=== PATIENT | female | born 1980 | race Caucasian/White ===

== ENCOUNTER 2020-12-15 08:53 | Emergency (ER) | payer OTHER, SELFPAY ==
[2020-12-15 09:13] VITALS: BP 159/90; PULSE 80; RESP 18; TEMP 36.8; O2SAT 100; BMI 28.3
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
== END 2020-12-15 10:00 | disposition home or self-care (01) ==
PROVIDERS: Emergency Provider Emergency Medicine
DX: S29.012A Strain of muscle and tendon of back wall of thorax, initial encounter (principal); V43.62XA Car passenger injured in collision with other type car in traffic accident, initial encounter; Y93.89 Activity, other specified; Y92.415 Exit ramp or entrance ramp of street or highway as the place of occurrence of the external cause; Y99.9 Unspecified external cause status
CPT/HCPCS: 99283

== ENCOUNTER 2020-12-18 16:03 | Emergency (ER) | payer OTHER, SELFPAY ==
--- NOTE | 2020-12-18 | ECG_ITS ---
Test Reason : CHEST PAIN Blood Pressure : / mmHG Vent. Rate : 077 BPM Atrial Rate : 077 BPM P-R Int : 148 ms QRS Dur : 082 ms QT Int : 388 ms P-R-T Axes : 054 025 022 degrees QTc Int : 439 ms Normal sinus rhythm Possible Left atrial enlargement Borderline ECG No previous ECGs available Referred By: Generic ED Physician Electronically Signed By:GINO NOBLE
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
[2020-12-18 16:34] VITALS: BP 144/87; PULSE 78; RESP 18; TEMP 36.5; O2SAT 100; BMI 28.3
[2020-12-18 18:18] VITALS: BP 150/97; PULSE 70; RESP 16; TEMP 36.3; O2SAT 99
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
== END 2020-12-18 20:04 | disposition home or self-care (01) ==
PROVIDERS: Emergency Provider Emergency Medicine Emergency Medical Services
DX: S39.012A Strain of muscle, fascia and tendon of lower back, initial encounter (principal); S29.011A Strain of muscle and tendon of front wall of thorax, initial encounter; M54.6 Pain in thoracic spine; V43.62XA Car passenger injured in collision with other type car in traffic accident, initial encounter; Y93.9 Activity, unspecified; Y92.410 Unspecified street and highway as the place of occurrence of the external cause; Y99.9 Unspecified external cause status; Z79.899 Other long term (current) drug therapy
CPT/HCPCS: 71111; 72070; 93005; 99283; 99284

== ENCOUNTER 2020-12-24 11:26 | Emergency (ER) | payer OTHER, SELFPAY ==
[2020-12-24 12:16] VITALS: BP 128/88; PULSE 78; RESP 20; TEMP 36.9; O2SAT 99; BMI 28.3
[2020-12-24 13:01] VITALS: BP 141/93; PULSE 81; RESP 18; O2SAT 98
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
== END 2020-12-24 14:16 | disposition home or self-care (01) ==
PROVIDERS: Emergency Provider Emergency Medicine Emergency Medical Services
DX: M54.6 Pain in thoracic spine (principal); Z79.899 Other long term (current) drug therapy
CPT/HCPCS: 99283; 99284

== ENCOUNTER 2022-01-30 07:48 | Emergency (ER) | payer OTHER, SELFPAY ==
--- NOTE | ~2022-01-30 | CT_ITS ---
EXAMINATION: CT ABDOMEN AND PELVIS WITH CONTRAST CLINICAL INFORMATION: Abdominal pain and constipation COMPARISON: None TECHNIQUE: Multidetector volumetric images were obtained from the superior aspect of the liver through the pubic symphysis following administration 85 mL of Omnipaque 350 intravenous contrast. Sagittal and coronal reformatted images were obtained on the technologist's workstation. Oral contrast: No This CT examination was performed using dose optimization techniques as appropriate, variously including the following: *Automated exposure control *Adjustment of mA and/or kV according to patient size (this includes techniques or standardized protocols for targeted exams where dose is matched to indication/reason for exam; i.e. extremities or head) *Use of iterative reconstruction technique DLP: 590 mGy-cm FINDINGS: LUNG BASES: The visualized lung bases are unremarkable. LIVER, GALLBLADDER, AND BILIARY TREE: The liver is normal in size, shape, and attenuation. No focal hepatic lesion or biliary ductal dilatation is present. The gallbladder has been surgically removed. PANCREAS: Unremarkable. SPLEEN: Unremarkable. ADRENAL GLANDS: Unremarkable. KIDNEYS AND URETERS: The kidneys are normal in size, shape, and attenuation. No hydronephrosis, hydroureter, or calculi seen. No perinephric stranding. BLADDER: Mild symmetric bladder wall thickening GASTROINTESTINAL TRACT: The small and large bowel are unremarkable. The appendix is unremarkable. ABDOMINAL WALL: No significant hernia is appreciated. LYMPH NODES: No retroperitoneal lymphadenopathy. VASCULAR: Unremarkable. PELVIC VISCERA: Anteverted normal appearing uterus. There is a 1.9 cm cyst in the right adnexa (3:66) which appears to be separate from the right ovary (3:63). OSSEOUS STRUCTURES: Unremarkable. CT/CT abdomen pelvis w IV con IMPRESSION: 1. A definitive cause for the patient's abdominal pain and constipation has not been found. 2. Incidentally noted right adnexal cyst. 3. Bladder wall thickening may be due to underfilling but cystitis could have such an appearance. Please correlate with UA. Fleischner guidelines were followed.
[2022-01-30 07:53] VITALS: BP 133/81; PULSE 115; RESP 16; TEMP 36.6; O2SAT 98; BMI 30.2
--- NOTE | 2022-01-30 08:33 | ED_ITS ---
HPI - Abdominal Pain General Chief Complaint: Abdominal Pain Stated Complaint: pelvic pain Time Seen by Provider: 01/30/22 08:01 Source: patient Mode of arrival: ambulatory Limitations: no limitations History of Present Illness HPI narrative: Patient is an otherwise healthy 41-year-old female who presents to the ED today with complaints of lower abdominal pain and bloating. She states her symptoms started Thursday after she completed her menstrual cycle. She describes the pain as ?pressure? followed by a sharp sensation that originates below her umbilicus and radiates to the RLQ and LLQ. She reports walking and lying down flat make the pain worse. She was able to have a small non-bloody BM while here however her last normal BM was Thursday. She took Gas-X with with relief of her bloating sensation. She denies fevers, chills, cough, chest pain, SOB, diarrhea, bloating/black stools, leg pain/swelling, rashes, known sick contacts, recent antibiotic use, recent travel, and personal/family hx of GI diagnoses. She does report an abdominal surgical history of a lap cholecystectomy and tubal ligation several years ago She also endorses having an increase in white vaginal discharge since her menses ended. She denies any dysuria, hematuria, vaginal itching, new vaginal bleeding, back pain, and flank pain. Related Data Hx Last Menstrual Period: Ended Thursday Patient : No Previous Rx's Medication Instructions Recorded cyclobenzaprine 10 mg tablet 10 mg PO TID PRN muscle spasm #14 12/15/20 tabs ibuprofen 600 mg tablet 600 mg PO Q8H PRN pain #20 tabs 12/15/20 lidocaine 5 % topical patch 1 patch topical DAILY #15 ea 12/15/20 (Lidoderm) oxycodone 5 mg tablet 5 mg PO Q6H PRN pain #14 tabs 12/18/20 diazepam 5 mg tablet (Valium) 5 mg PO TID PRN muscle spasm #14 12/24/20 tabs lidocaine 5 % topical patch 1 patch topical DAILY pain #15 ea 12/24/20 (Lidoderm) naproxen 500 mg tablet 500 mg PO BID PRN pain #10 tabs 12/24/20 oxycodone 5 mg tablet 5 mg PO Q6H PRN pain #14 tabs 12/24/20 doxycycline monohydrate 100 mg 100 mg PO BID #28 caps 01/30/22 capsule metronidazole 500 mg tablet 500 mg PO BID 7 days #14 tabs 01/30/22 nitrofurantoin 100 mg PO Q12H 5 days #10 caps 01/30/22 monohydrate/macrocrystals 100 mg capsule (Macrobid) phenazopyridine 200 mg tablet 200 mg PO TID PRN pain 6 doses #10 01/30/22 (Pyridium) tabs Allergies Allergy/AdvReac Type Severity Reaction Status Date / Time aspirin [ASA] Allergy Hives Verified 12/18/20 17:45 Review of Systems Review of Systems Yes all other systems are reviewed and are negative Constitutional: Reports no additional constitutional complaints, Denies body ache(s), Denies chills, Denies fever(s), Denies headache(s) and Denies weakness Eyes: Reports no additional eye complaints and Denies change in vision Reports system reviewed and no additional complaints, except as documented, Denies dizziness, Denies headache(s), Denies nasal congestion, Denies nasal discharge and Denies neck pain Cardiovascular: Reports no additional cardiovascular complaints, Denies chest pain, Denies leg edema and Denies dyspnea Respiratory: Reports no additional respiratory complaints, Denies cough and Denies dyspnea Gastrointestinal: Reports no additional gastrointestinal complaints, Reports abdominal pain, Reports bloating, Reports constipation, Denies diarrhea, Denies nausea and Reports vomiting Genitourinary: Reports no additional female genitourinary complaints, Denies hematuria, Denies genital pruritis, Denies genital lesions, Denies flank pain, Denies urinary incontinence, Reports vaginal discharge, Denies vaginal odor and Denies vaginal pruritus Musculoskeletal: Reports no additional musculoskeletal complaints, Denies back pain, Denies arthralgias, Denies joint swelling, Denies neck pain, Denies numbness and Denies tingling Skin/Breast: Reports system reviewed and no additional complaints, except as docu and Denies rash Reports system reviewed and no additional complaints, except as documented, Denies dizziness, Denies headache(s), Denies numbness, Denies tingling and Denies weakness PMFSH Past Medical History Attestation statement: The following information was validated with the patient. Source: old records reviewed, obtained from family and nursing notes reviewed Medical History Asthma Surgical History H/O tubal ligation History of carpal tunnel surgery Hx Last Menstrual Period: Ended Thursday Social History Social History Patient Tobacco Use Status: Never used Tobacco Advance Directives: No Advance Directives Information Provided: Yes Patient : No Physical Exam ED Vital Signs: Vital Signs - 24 hr 01/30/22 07:53 01/30/22 08:50 Temperature 97.9 F 98.5 F Pulse Rate 115 H 93 Respiratory Rate 16 20 Blood Pressure 133/81 134/92 H Pulse Oximetry 98 97 Oxygen Delivery Method Room Air Room Air BMI result Body Mass Index 30.2 Const General: cooperative, healthy appearing, comfortable and no acute distress Orientation/consciousness: patient oriented x3 Limitations: no limitations HENMT Head: Yes normal to inspection Ears: hearing grossly normal bilaterally General nose exam: Normal external nose present Face and sinus: Yes normal facial exam Eyes General: appearance normal, both eyes and all related structures Eyelids: Yes eyelids normal Conjunctivae: conjunctivae normal Sclerae: sclerae normal Pupils: Equal, round and reactive pupils present EOM: EOMs intact bilaterally Neck Neck: Yes normal visual inspection Chest Chest palpation & inspection: normal inspection of the chest Resp Effort & Inspection: normal respiratory effort Auscultation: clear to auscultation bilaterally Cardio Rate: regular rate Rhythm: regular rhythm Heart sounds: S1 normal heart sound present and S2 normal heart sound present GI Inspection: Yes normal to inspection Palpation (GI): Soft to palpation and Tenderness to palpation present (GI) in the LLQ, in the RLQ and suprapubicly; not at McBurney's point, Caldwell's sign negative, obturator sign negative and Rovsing's sign negative Auscultation: normal bowel sounds (RUQ, LUQ) and Hypoactive bowel sounds present (LLQ, RLQ) Other: Done with Yuridia GARCIA student (cassandra architect) General: Yes no CVA tenderness External Female Exam: normal external appearance Speculum Exam - Vagina: normal appearance of the vagina, normal palpation and abnormal vaginal discharge (Copious amount of thick white discharge ) Speculum Exam - Cervix: normal appearance of the cervix Bimanual exam- vagina & uterus: normal bimanual exam and normal palpation Bimanual Exam- Adnexa, other: normal adnexae Back/Spine/Pelvis Back: no CVA tenderness Thoracic/Lumbar Spine: thoracic and lumbar spine normal to inspection Skin General skin exam: no rashes or lesions noted Neuro General: patient oriented x3 Cranial nerves: Yes CN's II-XII intact bilaterally and Yes Equal, round and reactive pupils present Extrem General: Yes normal to inspection Course Course Course Narrative: Patient was seen in conjunction with Yuridia GARCIA student Reevaluation(s) Reevaluation #1: 9:00 -Pelvic exam performed with cassandra architect present. Speculum exam revealed copious amounts of thick, white discharge. No abnormalities noted along vaginal wall and cervix. Bimanual exam negative for cervical motion tenderness, adnexal tenderness, palpable masses to suggest PID or TOA. Swab for GC/CT, BV, martina, and trich were collected. Pt complaining of lower abdominal pain after exam, ordered Tylenol 975mg once for pain. -CBC reveals leukocytosis of 14.4 and abs neutrophils of 83.2. -BMP WNL. -Given leukocytosis and otherwise negative pelvic exam, will order CT abd/pelvis with IV contrast to assess for other causes of abdominal pain. Reevaluation #2: 10:15 -HCG negative. UA with trace protein, trace blood, 3+ leukocyte esterace, and 21-50 WBCs. Results consistent with cystitis, possible contamination from increased vaginal discharge. -CT abd/pelvis IMPRESSION: 1.? A definitive cause for the patient's abdominal pain and constipation has not been found. 2.? Incidentally noted right adnexal cyst. 3.? Bladder wall thickening may be due to underfilling but cystitis could have such an appearance. Please correlate with UA.. Discussed results with pt. Concern for acute GI etiology less likely. Symptoms likely attributed to combination of acute cystitis and bacterial vaginosis, will treat for both with Macrobid and Flagyl. Discussed avoidance of ETOH while taking and a few days after stopping Flagyl. Vaginal swabs pendings, will call patient if positive results return and discuss further management if indicated. Discussed worrisome signs and symptoms to watch out for and to return to ED if these occur. Follow up with PCP in 2-3 days for re-evaluation. Consultations Consultation #1: 1400-patient declined treatment for gonorrhea and chlamydia while she was in the emergency room. She tells me she has low concern for STDs. She is aware she will need to return if her gonorrhea test is positive. After the patient left her gonorrhea screen came back positive. She was also positive for bacterial vaginosis and she was informed of this. Patient is aware she will need to return for treatment with ceftriaxone. MDM - Abdominal Pain MDM Narrative Medical decision making narrative: Patient is an otherwise healthy 41-year-old female who presents to the ED today with complaints of lower abdominal pain and bloating. Pt tachy at 115, afebrile, otherwise VSS. She is tender to palpation with hypoactive bowel sounds in the b/l lower quadrants. Mild tenderness over the suprapubic area. Will check CBC, BMP, lipids, UA to differentiate GI vs etiology. Low concern at this time for pancreatitis, appendicitis, SBO, diverticulitis, ovarian torsion, ectopic . Will consider CT abd/pelvis and/or U/S pending lab results. Also reports increased vaginal discharge. Will perform pelvic exam and swab for GC/CT, BV, martina, trich. Medical Records Attestation: I reviewed the patient's medical records. Lab Data Attestation: I reviewed the patient's lab results. Result diagrams: 01/30/22 08:45 01/30/22 08:45 Labs: Lab Results 01/30/22 01/30/22 01/30/22 Range/Units 08:44 08:45 08:45 WBC 14.4 H (4.8-10.8) X10*3/uL RBC 4.70 (4.20-5.50) X10*6/uL Hgb 12.7 (12.0-16.0) g/dl Hct 39.5 (37.0-47.0) % MCV 84.0 (80.0-98.0) fL MCH 27.0 (27.0-33.0) pg MCHC 32.2 (31.0-35.0) g/dl RDW 14.3 (11.0-16.0) % Plt Count 263 (160-400) X10*3/uL MPV 11.4 (9.4-12.3) fL Immature Gran % (Auto) 0.3 (0.0-0.4) % Neut % (Auto) 83.2 H (45-73) % Lymph % (Auto) 8.2 L (20-40) % [place] % (Auto) 7.8 (2-11) % Eos % (Auto) 0.3 (0-4) % Baso % (Auto) 0.2 (0-2) % Lymph # (Auto) 1.2 (1.2-4.9) X10*3/uL [place] # (Auto) 1.1 (0.1-1.2) X10*3/uL Eos # (Auto) 0.1 (0.0-0.4) X10*3/uL Baso # (Auto) 0.0 (0.0-0.2) X10*3/uL Abs Immat Gran (auto) 0.04 H (0.00-0.03) X10*3/uL Absolute Neuts (auto) 12.0 H (2.0-8.3) x10*3/uL Absolute Nucleated RBC 0.000 (0.0-0.012) X10*3/uL Nucleated RBC % (auto) 0.0 (0.0-0.2) /100WBC Sodium 138 (135-145) mmol/L Potassium 4.3 (3.3-5.1) mmol/L Chloride 102 (96-108) mmol/L Carbon Dioxide 26 (22-29) mmol/L Anion Gap 14 (12-20) BUN 6 L (9-16) mg/dL Creatinine 0.76 (0.5-1.4) mg/dL Estim Creat Clear Calc 87.8 Estimated GFR > 60 Random Glucose 114 (60-115) mg/dL Calcium 9.1 (8.4-10.2) mg/dL Total Bilirubin 0.7 (0.0-1.0) mg/dL Direct Bilirubin 0.3 (0.0-0.5) mg/dL AST 20 (5-31) U/L ALT 24 (0-31) U/L Alkaline Phosphatase 88 (39-117) U/L Total Protein 7.3 (6.5-8.0) g/dL Albumin 4.1 (3.5-5.0) g/dL Urine Color Urine Appearance Urine pH (5.0-9.0) Ur Specific [place] (1.005-1.025) Urine Protein (Neg-Trace) mg/dL Urine Glucose (UA) (Negative) mg/dL Urine Ketones (Negative) mg/dL Urine Blood (Negative) Urine Nitrite (Negative) Ur Leukocyte Esterase (Negative) Urine RBC (0-2) /HPF Urine WBC (0-5) /HPF Ur Squamous Epith Cells (0-2) /HPF Urine Bacteria (None Seen) Hyaline Casts (0-2) /LPF Urine Test NEGATIVE (NEGATIVE) Martina species DNA (Negative) Chlam trachomat DNA PCR (Not Detect.) Gardnerella DNA Probe (Negative) N.gonorrhoeae DNA (PCR) (Not Detect.) Trichomonas DNA Probe (Negative) 01/30/22 01/30/22 01/30/22 Range/Units 08:45 09:02 09:02 WBC (4.8-10.8) X10*3/uL RBC (4.20-5.50) X10*6/uL Hgb (12.0-16.0) g/dl Hct (37.0-47.0) % MCV (80.0-98.0) fL MCH (27.0-33.0) pg MCHC (31.0-35.0) g/dl RDW (11.0-16.0) % Plt Count (160-400) X10*3/uL MPV (9.4-12.3) fL Immature Gran % (Auto) (0.0-0.4) % Neut % (Auto) (45-73) % Lymph % (Auto) (20-40) % [place] % (Auto) (2-11) % Eos % (Auto) (0-4) % Baso % (Auto) (0-2) % Lymph # (Auto) (1.2-4.9) X10*3/uL [place] # (Auto) (0.1-1.2) X10*3/uL Eos # (Auto) (0.0-0.4) X10*3/uL Baso # (Auto) (0.0-0.2) X10*3/uL Abs Immat Gran (auto) (0.00-0.03) X10*3/uL Absolute Neuts (auto) (2.0-8.3) x10*3/uL Absolute Nucleated RBC (0.0-0.012) X10*3/uL Nucleated RBC % (auto) (0.0-0.2) /100WBC Sodium (135-145) mmol/L Potassium (3.3-5.1) mmol/L Chloride (96-108) mmol/L Carbon Dioxide (22-29) mmol/L Anion Gap (12-20) BUN (9-16) mg/dL Creatinine (0.5-1.4) mg/dL Estim Creat Clear Calc Estimated GFR Random Glucose (60-115) mg/dL Calcium (8.4-10.2) mg/dL Total Bilirubin (0.0-1.0) mg/dL Direct Bilirubin (0.0-0.5) mg/dL AST (5-31) U/L ALT (0-31) U/L Alkaline Phosphatase (39-117) U/L Total Protein (6.5-8.0) g/dL Albumin (3.5-5.0) g/dL Urine Color Dark Yellow Urine Appearance Cloudy Urine pH 6.0 (5.0-9.0) Ur Specific [place] 1.020 (1.005-1.025) Urine Protein 30 (1+) H (Neg-Trace) mg/dL Urine Glucose (UA) Negative (Negative) mg/dL Urine Ketones 40 (Negative) mg/dL Urine Blood Trace H (Negative) Urine Nitrite Negative (Negative) Ur Leukocyte Esterase Large (3+) H (Negative) Urine RBC 0-2 (0-2) /HPF Urine WBC 21-50 H (0-5) /HPF Ur Squamous Epith Cells 11-20 (0-2) /HPF Urine Bacteria 4+ (None Seen) Hyaline Casts 3-5 (0-2) /LPF Urine Test (NEGATIVE) Martina species DNA Negative (Negative) Chlam trachomat DNA PCR NOT DETECTED (Not Detect.) Gardnerella DNA Probe Positive A (Negative) N.gonorrhoeae DNA (PCR) DETECTED A (Not Detect.) Trichomonas DNA Probe Negative (Negative) Imaging Data CT scan - abdomen: Attestation: I personally reviewed and interpreted this imaging study as follows: Radiologist's impression: FINDINGS: LUNG BASES: The visualized lung bases are unremarkable.? LIVER, GALLBLADDER, AND BILIARY TREE: The liver is normal in size, shape, and attenuation. No focal hepatic lesion or biliary ductal dilatation is present. The gallbladder has been surgically removed.? PANCREAS: Unremarkable.? SPLEEN: Unremarkable.? ADRENAL GLANDS: Unremarkable.? KIDNEYS AND URETERS: The kidneys are normal in size, shape, and attenuation. No hydronephrosis, hydroureter, or calculi seen. No perinephric stranding. ? BLADDER: Mild symmetric bladder wall thickening? GASTROINTESTINAL TRACT: The small and large bowel are unremarkable. The appendix is unremarkable.? ABDOMINAL WALL: No significant hernia is appreciated.? LYMPH NODES: No retroperitoneal lymphadenopathy. VASCULAR: Unremarkable. PELVIC VISCERA: Anteverted normal appearing uterus. There? is a 1.9 cm cyst in the right adnexa (3:66) which appears to be separate from the right ovary (3:63).? OSSEOUS STRUCTURES: Unremarkable.? CT/CT abdomen pelvis w IV con IMPRESSION: 1.? A definitive cause for the patient's abdominal pain and constipation has not been found. 2.? Incidentally noted right adnexal cyst. 3.? Bladder wall thickening may be due to underfilling but cystitis could have such an appearance. Please correlate with UA. ? Fleischner guidelines were followed. Discharge Plan Discharge Clinical Impression: Cystitis, Bacterial vaginosis Patient Disposition: Home, Self-Care Instructions: Bacterial Vaginosis (ED), Interstitial Cystitis (ED) Additional Instructions: Your CT scan is reassuring We did send testing for common vaginal infections and STDs. These do take several days to come back and we will call you if they are positive. We did not treat you for STDs while you are here in the emergency room because this was not really a concern for you Return for worsening pain, fever or vomiting Prescriptions: New nitrofurantoin monohyd/m-cryst [Macrobid] 100 mg capsule 100 mg PO Q12H 5 Days Qty: 10 0RF Rx Instructions: must administer with a meal/food metronidazole 500 mg tablet 500 mg PO BID 7 Days Qty: 14 0RF phenazopyridine [Pyridium] 200 mg tablet 200 mg PO TID PRN (Reason: pain) Qty: 10 0RF doxycycline monohydrate 100 mg capsule 100 mg PO BID Qty: 28 0RF No Action cyclobenzaprine 10 mg tablet 10 mg PO TID PRN (Reason: muscle spasm) Qty: 14 0RF lidocaine [Lidoderm] 5 % adhesive patch,medicated 1 patch topical DAILY Qty: 15 0RF Rx Instructions: leave on most painful area for up to 12 hrs ibuprofen 600 mg tablet 600 mg PO Q8H PRN (Reason: pain) Qty: 20 0RF lidocaine [Lidoderm] 5 % adhesive patch,medicated 1 patch topical DAILY Qty: 15 0RF Rx Instructions: leave on most painful area for up to 12 hrs. May be substituted naproxen 500 mg tablet 500 mg PO BID PRN (Reason: pain) Qty: 10 0RF diazepam [Valium] 5 mg tablet 5 mg PO TID PRN (Reason: muscle spasm) Qty: 14 0RF oxycodone 5 mg tablet 5 mg PO Q6H PRN (Reason: pain) Qty: 14 0RF oxycodone 5 mg tablet 5 mg PO Q6H PRN (Reason: pain) Qty: 14 0RF Referrals: Physician,Unknown J [Primary Care Provider] - Stand Alone Forms: Work/School Release Interventions: ED Discharge Assessment Last Done: 01/30/22 10:54 Discharge Date/Time: 01/30/22 10:54
[2022-01-30 08:50] VITALS: BP 134/92; PULSE 93; RESP 20; TEMP 36.9; O2SAT 97
[2022-01-30 08:52] LABS: MANUAL DIFF FLAG NO
[2022-01-30 08:54] LABS: Basophils Percent Auto 0.2 % (0-2); Eosinophils Absolute Auto 0.1 X10*3/uL (0.0-0.4); Eosinophils Percent Auto 0.3 % (0-4); Hematocrit 39.5 % (37.0-47.0); Hemoglobin 12.7 g/dl (12.0-16.0); Imm Gran Abs Auto 0.04 X10*3/uL (0.00-0.03); Imm Gran Pct Auto 0.3 % (0.0-0.4); Lymphocytes Absolute Auto 1.2 X10*3/uL (1.2-4.9); Lymphocytes Percent Auto 8.2 % (20-40); Mean Corpuscular HGB Conc 32.2 g/dl (31.0-35.0); Mean Platelet Volume 11.4 fL (9.4-12.3); Monocytes Absolute Auto 1.1 X10*3/uL (0.1-1.2); Monocytes Percent Auto 7.8 % (2-11); Neutrophils Percent Auto 83.2 % (45-73); Platelet Count 263 X10*3/uL (160-400); Red Cell Distribution Width 14.3 % (11.0-16.0); White Blood Count 14.4 X10*3/uL (4.8-10.8)
[2022-01-30 09:02] LABS: Appearance Urine Cloudy; Color Urine Dark Yellow; Glucose Urine UA Negative (Negative); Leukocyte Esterase Urine Large (3+) (Negative); Nitrite Urine Negative (Negative); UMIC TRIGGER UACC YES; Urine Blood Trace (Negative); Urine Ketones 40 mg/dL (Negative); Urine Protein 30 (1+) mg/dL (Neg-Trace)
[2022-01-30 09:06] LABS: UPreg QC Valid YES; Urine Pregnancy NEGATIVE (NEGATIVE)
[2022-01-30 09:07] LABS: Bacteria Urine 4+ (None Seen); RBC Urine 0-2 /HPF (0-2); UACC Culture Trigger YES; WBC Urine 21-50 /HPF (0-5)
[2022-01-30 09:09] LABS: Alanine Aminotransferase 24 U/L (0-31); Albumin Level 4.1 g/dL (3.5-5.0); Alkaline Phosphatase 88 U/L (39-117); Anion Gap 14 (12-20); Aspartate Amino Transferase 20 U/L (5-31); Bilirubin Direct 0.3 mg/dL (0.0-0.5); Bilirubin Total 0.7 mg/dL (0.0-1.0); Blood Urea Nitrogen 6 mg/dL (9-16); Calcium 9.1 mg/dL (8.4-10.2); Carbon Dioxide 26 mmol/L (22-29); Chloride 102 mmol/L (96-108); Creatinine Clr Calc Pharmacy 87.8; Estimated Glomerular Filt Rate > 60; Glucose Random 114 mg/dL (60-115); Potassium 4.3 mmol/L (3.3-5.1); Sodium 138 mmol/L (135-145); Total Protein 7.3 g/dL (6.5-8.0)
[2022-01-30] MEDS: Acetaminophen 325 MG TABLET 975 MG PO (09:12)
[2022-01-30] MEDS: iohexoL 350 MG/ML 100 ML INFUS..BTL 85 ML IV (09:34)
[2022-01-30 12:16] LABS: BV Int Neg Control Negative (Negative); BV Int Pos Control Positive (Positive)
[2022-01-30 12:17] LABS: CT PCR NOT DETECTED (Not Detect.); NG PCR DETECTED (Not Detect.)
== END 2022-01-30 10:54 | disposition home or self-care (01) ==
PROVIDERS: Nurse Practitioner Family; Emergency Provider Emergency Medicine
DX: N76.0 Acute vaginitis (principal); N30.90 Cystitis, unspecified without hematuria; R10.2 Pelvic and perineal pain; R10.30 Lower abdominal pain, unspecified; Z79.899 Other long term (current) drug therapy
CPT/HCPCS: 36415; 74177; 80048; 80076; 81001; 81003; 81025; 85025; 87086; 87480; 87491; 87510; 87591; 87660; 99284; Q9967

== ENCOUNTER 2022-01-31 08:32 | Emergency (ER) | payer OTHER, SELFPAY ==
[2022-01-31 08:35] VITALS: BP 150/98; PULSE 100; RESP 19; TEMP 36.6; O2SAT 99; BMI 30.2
--- NOTE | 2022-01-31 09:13 | ED_ITS ---
HPI - Female Genitourinary General Chief complaint: Urogenital-Female Stated complaint: tested positive for Gonorrhea needs shot Time Seen by Provider: 01/31/22 09:10 Source: patient Mode of arrival: ambulatory Limitations: no limitations History of Present Illness HPI Narrative: This is a 41-year-old female who presented to the emergency room yesterday with complaints of pelvic discomfort, vaginal discharge. The patient had STD screening done yesterday. Her urine is positive for gonorrhea. She is currently taking metronidazole for bacterial vaginosis which she was also positive for. She was prescribed doxycycline yesterday as well as an antibiotic for UTI. Patient denies any fevers, chills, vomiting. She reports her pain is controlled with either Tylenol or Motrin. She is here for treatment for gonorrhea Related Data Previous Rx's Medication Instructions Recorded cyclobenzaprine 10 mg tablet 10 mg PO TID PRN muscle spasm #14 12/15/20 tabs ibuprofen 600 mg tablet 600 mg PO Q8H PRN pain #20 tabs 12/15/20 lidocaine 5 % topical patch 1 patch topical DAILY #15 ea 12/15/20 (Lidoderm) oxycodone 5 mg tablet 5 mg PO Q6H PRN pain #14 tabs 12/18/20 diazepam 5 mg tablet (Valium) 5 mg PO TID PRN muscle spasm #14 12/24/20 tabs lidocaine 5 % topical patch 1 patch topical DAILY pain #15 ea 12/24/20 (Lidoderm) naproxen 500 mg tablet 500 mg PO BID PRN pain #10 tabs 12/24/20 oxycodone 5 mg tablet 5 mg PO Q6H PRN pain #14 tabs 12/24/20 doxycycline monohydrate 100 mg 100 mg PO BID #28 caps 01/30/22 capsule metronidazole 500 mg tablet 500 mg PO BID 7 days #14 tabs 01/30/22 nitrofurantoin 100 mg PO Q12H 5 days #10 caps 01/30/22 monohydrate/macrocrystals 100 mg capsule (Macrobid) phenazopyridine 200 mg tablet 200 mg PO TID PRN pain 6 doses #10 01/30/22 (Pyridium) tabs Allergies Allergy/AdvReac Type Severity Reaction Status Date / Time aspirin [ASA] Allergy Hives Verified 12/18/20 17:45 Review of Systems Review of Systems: Yes all other systems are reviewed and are negative Constitutional: Constitutional: Reports no additional constitutional complaints, Denies body ache(s), Denies chills, Denies fever(s), Denies headach e(s) and Denies weakness Eyes: Eyes: Reports no additional eye complaints and Denies change in vision ENT: Reports system reviewed and no additional complaints, except as documented, Denies dizziness, Denies headache(s), Denies nasal congestion, Denies nasal discharge and Denies neck pain Cardiovascular: Cardiovascular: Reports no additional cardiovascular complaints, Denies chest pain, Denies leg edema and Denies dyspnea Respiratory: Respiratory: Reports no additional respiratory complaints, Denies cough and Denies dyspnea Gastrointestinal: Gastrointestinal: Reports no additional gastrointestinal complaints, Denies abdominal pain, Denies diarrhea, Denies nausea and Denies vomiting Genitourinary: Genitourinary: Reports no additional female genitourinary complaints, Denies hematuria, Denies dysuria, Reports pelvic pain, Denies flank pain, Denies urinary incontinence, Denies urinary hesitancy, Denies urinary urgency and Reports vaginal discharge Musculoskeletal: Musculoskeletal: Reports no additional musculoskeletal complaints, Denies back pain, Denies arthralgias, Denies joint swelling, Denies neck pain, Denies numbness and Denies tingling Integumentary/Breasts: Skin/Breast: Reports system reviewed and no additional complaints, except as docu and Denies rash Neurologic: Reports system reviewed and no additional complaints, except as documented, Denies dizziness, Denies headache(s), Denies numbness, Denies tingling and Denies weakness PMF Past Medical History Attestation statement: The following information was validated with the patient. Source: old records reviewed and nursing notes reviewed Medical History Asthma Surgical History H/O tubal ligation History of carpal tunnel surgery Social History Social History Patient Tobacco Use Status: Never used Tobacco Advance Directives: No Advance Directives Information Provided: No Physical Exam Vital Signs: Vital Signs: Last Vital Signs Temp 98 F 01/31/22 08:35 Pulse 100 10/28/22 08:35 Resp 19 01/31/22 08:35 BP 150/98 H 01/31/22 08:35 Pulse Ox 99 01/31/22 08:35 O2 Del Method 01/31/22 08:35 BMI result Body Mass Index 30.2 Const: General: cooperative, healthy appearing, comfortable and no acute distress Orientation/consciousness: patient oriented x3 Limitations: no limitations HEENT: Head: Yes normal to inspection Eyes: General: appearance normal, both eyes and all related structures Neck: Neck: Yes normal visual inspection Resp: Effort & Inspection: normal respiratory effort Skin: General skin exam: no rashes or lesions noted Neuro: General: patient oriented x3 and moves all extremities Cognition (Neuro): normal cognition Gait exam (Neuro): Normal gait present MDM - Female Genitourinary MDM Narrative Medical decision making narrative: This is a 41-year-old female who was seen here yesterday in the emergency room and returns today as she was notified that her urine test was positive for gonorrhea. She is here for treatment. She reports no additional complaints. She received ceftriaxone 500 mg IM. She is already being treated with metronidazole, doxycycline and an antibiotic for UTI We discussed safe sex practices. Retesting for clearance. Reviewed worrisome signs and symptoms with the patient and when to return to the emergency room. Comfortable with discharge home. Medical Records Attestation: I reviewed the patient's medical records. Lab Data Attestation: I reviewed the patient's lab results. Discharge Plan Discharge Clinical Impression: Gonorrhea Patient Disposition: Home, Self-Care Instructions: Gonorrhea (ED) Additional Instructions: Abstain from unprotected sexual intercourse for 7 days Get retested at [facility] 7 [facility] Take all of the antibiotics are prescribed to you yesterday Prescriptions: No Action cyclobenzaprine 10 mg tablet 10 mg PO TID PRN (Reason: muscle spasm) Qty: 14 0RF lidocaine [Lidoderm] 5 % adhesive patch,medicated 1 patch topical DAILY Qty: 15 0RF Rx Instructions: leave on most painful area for up to 12 hrs ibuprofen 600 mg tablet 600 mg PO Q8H PRN (Reason: pain) Qty: 20 0RF lidocaine [Lidoderm] 5 % adhesive patch,medicated 1 patch topical DAILY Qty: 15 0RF Rx Instructions: leave on most painful area for up to 12 hrs. May be substituted naproxen 500 mg tablet 500 mg PO BID PRN (Reason: pain) Qty: 10 0RF diazepam [Valium] 5 mg tablet 5 mg PO TID PRN (Reason: muscle spasm) Qty: 14 0RF oxycodone 5 mg tablet 5 mg PO Q6H PRN (Reason: pain) Qty: 14 0RF oxycodone 5 mg tablet 5 mg PO Q6H PRN (Reason: pain) Qty: 14 0RF nitrofurantoin monohyd/m-cryst [Macrobid] 100 mg capsule 100 mg PO Q12H 5 Days Qty: 10 0RF Rx Instructions: must administer with a meal/food metronidazole 500 mg tablet 500 mg PO BID 7 Days Qty: 14 0RF phenazopyridine [Pyridium] 200 mg tablet 200 mg PO TID PRN (Reason: pain) Qty: 10 0RF doxycycline monohydrate 100 mg capsule 100 mg PO BID Qty: 28 0RF Referrals: Physician,Unknown J [Primary Care Provider] -
[2022-01-31] MEDS: cefTRIAXone sodium 500 MG, Lidocaine HCl 1 % MPF 1 ML IM (09:14)
== END 2022-01-31 09:40 | disposition home or self-care (01) ==
PROVIDERS: Emergency Provider Emergency Medicine
DX: A54.9 Gonococcal infection, unspecified (principal); Z79.899 Other long term (current) drug therapy
CPT/HCPCS: 96372; 99282; 99283; 99284; J0696

== ENCOUNTER 2022-07-19 22:39 | Emergency (ER) | payer OTHER, SELFPAY ==
[2022-07-19 22:56] VITALS: BP 123/87; PULSE 98; RESP 20; TEMP 36.6; O2SAT 99; BMI 30.2
--- NOTE | 2022-07-19 23:19 | ED_ITS ---
HPI - General Adult General Chief complaint: Wound/Laceration Stated complaint: laceration left fingers Time Seen by Provider: 07/19/22 23:18 Source: patient Mode of arrival: ambulatory Limitations: no limitations History of Present Illness HPI narrative: Patient is a 41 year old assigned female at with no reported medical history presenting to the emergency department today with a left middle finger laceration. Patient states that she was washing dishes and a glass slipped out of her hand and cut her left middle finger. Patient states that she doesn't know when her last tetanus shot was. Patient denies any dizziness, lightheadedness, abdominal pain, nausea, vomiting, fever, chills, blurry vision, double vision, loss of vision, chest pain, difficulty breathing, shortness of breath, back pain, night sweats, pain with urination, increased urinary frequency, increased urinary urgency, blood in her urine or stool, syncope or a near syncopal episode, bowel incontinence, bladder incontinence, bowel retention, bladder retention, or any other complaints at this time. Onset (ago): minute(s) Location: left and upper extremity (middle finger) Radiation: non-radiation Severity: mild Severity scale (1-10): 2 Relieving factors: none Exacerbating factors: none Associated symptoms: denies other symptoms Treatments prior to arrival: none Related Data Previous Rx's Medication Instructions Recorded cyclobenzaprine 10 mg tablet 10 mg PO TID PRN muscle spasm #14 12/15/20 tabs ibuprofen 600 mg tablet 600 mg PO Q8H PRN pain #20 tabs 12/15/20 lidocaine 5 % topical patch 1 patch topical DAILY #15 ea 12/15/20 (Lidoderm) oxycodone 5 mg tablet 5 mg PO Q6H PRN pain #14 tabs 12/18/20 diazepam 5 mg tablet (Valium) 5 mg PO TID PRN muscle spasm #14 12/24/20 tabs lidocaine 5 % topical patch 1 patch topical DAILY pain #15 ea 12/24/20 (Lidoderm) naproxen 500 mg tablet 500 mg PO BID PRN pain #10 tabs 12/24/20 oxycodone 5 mg tablet 5 mg PO Q6H PRN pain #14 tabs 12/24/20 doxycycline monohydrate 100 mg 100 mg PO BID #28 caps 01/30/22 capsule metronidazole 500 mg tablet 500 mg PO BID 7 days #14 tabs 10/27/22 nitrofurantoin 100 mg PO Q12H 5 days #10 caps 01/30/22 monohydrate/macrocrystals 100 mg capsule (Macrobid) phenazopyridine 200 mg tablet 200 mg PO TID PRN pain 6 doses #10 01/30/22 (Pyridium) tabs cephalexin 500 mg capsule 500 mg PO Q6H 7 days #28 caps 07/19/22 Allergies Allergy/AdvReac Type Severity Reaction Status Date / Time aspirin [ASA] Allergy Hives Verified 12/18/20 17:45 Review of Systems Constitutional: Constitutional: Reports no additional constitutional complaints, Denies chills, Denies fever(s) and Denies night sweats Eyes: Eyes: Reports no additional eye complaints, Denies blurry vision, Denies change in vision, Denies diplopia, Denies eye discharge, Denies loss of vision and Denies eye pain ENT: Denies dizziness Cardiovascular: Cardiovascular: Reports no additional cardiovascular complaints, Denies chest pain, Denies lightheadedness, Denies Loss of Consciousness and Denies dyspnea Respiratory: Respiratory: Reports no additional respiratory complaints and Denies dyspnea Gastrointestinal: Gastrointestinal: Reports no additional gastrointestinal complaints, Denies abdominal pain, Denies melena, Denies hematochezia, Denies change in bowel habits and Denies change in stool character Genitourinary: Genitourinary: Denies hematuria, Denies urinary frequency, Denies dysuria, Denies urinary incontinence, Denies urinary hesitancy and Denies urinary urgency Musculoskeletal: Musculoskeletal: Reports no additional musculoskeletal complaints, Denies numbness and Denies tingling Integumentary/Breasts: Comments: left middle finger laceration Neurologic: Denies dizziness, Denies loss of vision, Denies numbness and Denies tingling Psychiatric: Psychiatric: Reports no additional psychiatric complaints Endocrine: Endocrine: Reports no additional endocrine complaints Hematologic/Lymphatic: Hematologic/Lymphatic: Reports no additional hematologic/lymphatic complaints Allergic/Immunologic: Allergic/Immunologic: Reports no additional allerg ic/immunologic complaints PMFSH Past Medical History Attestation statement: The following information was validated with the patient. Source: old records reviewed and nursing notes reviewed Medical History Asthma Surgical History H/O tubal ligation History of carpal tunnel surgery Social History Social History Patient Tobacco Use Status: Never used Tobacco Advance Directives: No Advance Directives Information Provided: Yes Physical Exam ED Vital Signs: Vital Signs - 24 hr 07/19/22 22:56 07/19/22 23:48 Temperature 97.8 F 97.8 F Pulse Rate 98 89 Respiratory Rate 20 18 Blood Pressure 123/87 146/83 H Pulse Oximetry 99 97 Oxygen Delivery Method Room Air Room Air BMI result Body Mass Index 30.2 Const General: cooperative, no acute distress, alert and awake Nutritional Appearance: well nourished Orientation/consciousness: patient oriented x3 Limitations: no limitations HENMT Head: Yes normal to inspection and Yes atraumatic Ears: hearing grossly normal bilaterally and external ears normal General nose exam: Normal external nose present, no nasal discharge noted and no epistaxis Face and sinus: Yes normal facial exam, No abrasion and No laceration Mouth: Normal oral and palatal mucosa present, no drooling and no muffled voice Eyes General: appearance normal, both eyes and all related structures Periorbital: periorbital findings normal Eyelids: Yes eyelids normal Conjunctivae: conjunctivae normal Pupils: Equal, round and reactive pupils present EOM: EOMs intact bilaterally Neck Neck: Yes normal visual inspection, Yes full ROM and Yes no lymphadenopathy Chest Chest palpation & inspection: normal inspection of the chest Resp Effort & Inspection: normal respiratory effort and able to speak in complete sentences GI Inspection: Yes normal to inspection Neuro General: patient oriented x3 and moves all extremities Cranial nerves: Yes Equal, round and reactive pupils present Cognition (Neuro): normal cognition Motor exam (neuro): 5/5 motor strength present throughout Sensory Exam: Normal double simultaneous stimulation for sensation Coordination: [id number] test normal Extrem General: Yes full ROM and Yes capillary refill normal Hand/finger images: 1. superficial laceration, no active bleeding Psych Appearance: grossly normal Mental Status: mental status grossly normal Affect: normal affect Attitude: cooperative Thought process: Normal thought process present Thought content: Normal thought content present Insight: Good insight present (Psych) Medications Administered Discontinued Medications Generic Name Dose Route Start Last Admin Trade Name Freq PRN Reason Stop Dose Admin Diphtheria/Tetanus/Acell Pertussis 0.5 ml 07/19/22 23:31 07/19/22 23:43 Diphth,Pertus(Acell),Tet Adult 0.5 Ml Syringe IM 07/19/22 23:32 0.5 ml .ONCE ONE Administration Procedures Laceration Laceration 1: Site: other (middle finger) Side (If applicable): left Size (cm): 1 Description: flap Depth: simple, single layer Pre-repair: wound explored, irrigated extensively and deep structures intact Skin layer closed with: other (dermabond) Medical Decision Making Medical Decision Making MDM Narrative: Patient is a 41 year old assigned female at with no reported medical history presenting to the emergency department today with a left middle finger laceration. Patient's physical exam showed a 1cm laceration to the left middle finger as documented in the physical exam portion of this chart. Patient's laceration was repaired with dermabond, without incident. I explained my physical exam findings to the patient. I answered all questions asked by the patient. Patient was brought up to date on tetanus. I stressed the importance of the patient taking her medication as prescribed. I stressed the importance of the patient following up with her primary care provider. I stressed the importance of the patient returning to the emergency department immediately if her symptoms were to worsen or if she were to develop any dizziness, shortness of breath, difficulty breathing, chest pain, blurry vision, loss of vision, nausea, vomiting, abdominal pain, fever, chills, back pain, or any other complaints. Patient verbalized agreement and understanding with this treatment plan and discharge. Differential Diagnosis Differential Diagnoses: The differential diagnosis associated with the presentation includes left middle finger laceration Discharge Plan Discharge Clinical Impression: Laceration Patient Disposition: Home, Self-Care Instructions: Skin Adhesive Care (ED) Additional Instructions: Do NOT get the affected area wet for 7 days. Perform daily wound checks and dressing changes. Follow up with your primary care provider. Return to the emergency department immediately if your symptoms worsen or if you develop any dizziness, shortness of breath, difficulty breathing, chest pain, blurry vision, loss of vision, nausea, vomiting, abdominal pain, fever, chills, back pain, or any other complaints. Prescriptions: New cephalexin 500 mg capsule 500 mg PO Q6H 7 Days Qty: 28 0RF No Action cyclobenzaprine 10 mg tablet 10 mg PO TID PRN (Reason: muscle spasm) Qty: 14 0RF lidocaine [Lidoderm] 5 % adhesive patch,medicated 1 patch topical DAILY Qty: 15 0RF Rx Instructions: leave on most painful area for up to 12 hrs ibuprofen 600 mg tablet 600 mg PO Q8H PRN (Reason: pain) Qty: 20 0RF lidocaine [Lidoderm] 5 % adhesive patch,medicated 1 patch topical DAILY Qty: 15 0RF Rx Instructions: leave on most painful area for up to 12 hrs. May be substituted naproxen 500 mg tablet 500 mg PO BID PRN (Reason: pain) Qty: 10 0RF diazepam [Valium] 5 mg tablet 5 mg PO TID PRN (Reason: muscle spasm) Qty: 14 0RF oxycodone 5 mg tablet 5 mg PO Q6H PRN (Reason: pain) Qty: 14 0RF oxycodone 5 mg tablet 5 mg PO Q6H PRN (Reason: pain) Qty: 14 0RF nitrofurantoin monohyd/m-cryst [Macrobid] 100 mg capsule 100 mg PO Q12H 5 Days Qty: 10 0RF Rx Instructions: must administer with a meal/food metronidazole 500 mg tablet 500 mg PO BID 7 Days Qty: 14 0RF phenazopyridine [Pyridium] 200 mg tablet 200 mg PO TID PRN (Reason: pain) Qty: 10 0RF doxycycline monohydrate 100 mg capsule 100 mg PO BID Qty: 28 0RF Referrals: Tiarra Farley MD [Primary Care Provider] - Stand Alone Forms: Work/School Release Interventions: ED Discharge Assessment Last Done: 07/19/22 23:49 Discharge Date/Time: 07/19/22 23:52 Print Language: [place]
[2022-07-19] MEDS: Diphth,Pertus(ACell),Tet Adult 0.5 ML SYRINGE IM (23:43)
[2022-07-19 23:48] VITALS: BP 146/83; PULSE 89; RESP 18; TEMP 36.6; O2SAT 97
== END 2022-07-19 23:52 | disposition home or self-care (01) ==
PROVIDERS: Emergency Provider Emergency Medicine Emergency Medical Services; PCP Internal Medicine
DX: S61.213A Laceration without foreign body of left middle finger without damage to nail, initial encounter (principal); W25.XXXA Contact with sharp glass, initial encounter; Y93.G1 Activity, food preparation and clean up; Y92.030 Kitchen in apartment as the place of occurrence of the external cause; Y99.9 Unspecified external cause status
CPT/HCPCS: 12001; 90471; 90715; 99283; 99284

== ENCOUNTER 2022-08-29 11:52 | Emergency (ER) | payer OTHER, SELFPAY ==
--- NOTE | 2022-08-29 12:12 | ED_ITS ---
HPI - General Adult General Chief complaint: Upper Respiratory Symptoms Stated complaint: Fever Time Seen by Provider: 08/29/22 13:02 Source: patient Mode of arrival: ambulatory Limitations: no limitations History of Present Illness HPI narrative: 42-year-old female with history of seasonal allergies presents to the ER for evaluation of dry cough, nasal congestion and sinus pressure that started yesterday along with a new onset fever of 102 that started this morning. She took Tylenol at 09:00 and the fever improved. She denies any known sick contacts. She denies any shortness of breath or chest pain. No nausea, vomiting, diarrhea, abdominal pain. She has a slight sore throat from coughing. She is able to eat and drink normally. MD complaint: URI symptoms Onset (ago): day(s) (2) Location: head, mouth and chest Radiation: non-radiation Severity: moderate Quality: aching Pain Consistency: intermittent Relieving factors: medication Exacerbating factors: none Associated symptoms: cough, fever/chills and headaches Treatments prior to arrival: none Related Data Previous Rx's Medication Instructions Recorded cyclobenzaprine 10 mg tablet 10 mg PO TID PRN muscle spasm #14 12/15/20 tabs ibuprofen 600 mg tablet 600 mg PO Q8H PRN pain #20 tabs 12/15/20 lidocaine 5 % topical patch 1 patch topical DAILY #15 ea 12/15/20 (Lidoderm) oxycodone 5 mg tablet 5 mg PO Q6H PRN pain #14 tabs 12/18/20 diazepam 5 mg tablet (Valium) 5 mg PO TID PRN muscle spasm #14 12/24/20 tabs lidocaine 5 % topical patch 1 patch topical DAILY pain #15 ea 12/24/20 (Lidoderm) naproxen 500 mg tablet 500 mg PO BID PRN pain #10 tabs 12/24/20 oxycodone 5 mg tablet 5 mg PO Q6H PRN pain #14 tabs 12/24/20 doxycycline monohydrate 100 mg 100 mg PO BID #28 caps 01/30/22 capsule metronidazole 500 mg tablet 500 mg PO BID 7 days #14 tabs 01/30/22 nitrofurantoin 100 mg PO Q12H 5 days #10 caps 01/30/22 monohydrate/macrocrystals 100 mg capsule (Macrobid) phenazopyridine 200 mg tablet 200 mg PO TID PRN pain 6 doses #10 01/30/22 (Pyridium) tabs cephalexin 500 mg capsule 500 mg PO Q6H 7 days #28 caps 07/19/22 fluticasone propionate 50 2 spray intranasal DAILY #16 grams 08/29/22 mcg/actuation nasal spray,suspension (Allergy Relief (fluticasone)) Allergies Allergy/AdvReac Type Severity Reaction Status Date / Time aspirin [ASA] Allergy Hives Verified 08/29/22 12:16 Review of Systems Review of Systems: Yes all other systems are reviewed and are negative [facility] Past Medical History Medical History Asthma Surgical History H/O tubal ligation History of carpal tunnel surgery Social History Social History Patient Tobacco Use Status: Never used Tobacco Advance Directives: No Advance Directives Information Provided: Yes Physical Exam ED Vital Signs: Vital Signs - 24 hr 08/29/22 12:13 Temperature 98.3 F Pulse Rate 79 Respiratory Rate 20 Blood Pressure 147/92 H Pulse Oximetry 99 Oxygen Delivery Method Room Air BMI result Body Mass Index 31.2 Appearance: Alert. Oriented X3. No acute distress. Head: normocephalic, atraumatic. No sinus tenderness. Eyes: Pupils equal, round and reactive to light. ENT: Pharynx with mild posterior pharyngeal erythema. No tonsillar swelling or exudate. uvula midline. Normal voice. normal tympanic membranes bilaterally, no erythema. Neck: Normal inspection. Neck supple. CVS: Normal heart rate and rhythm. Pulses normal. Respiratory: No respiratory distress. Breath sounds normal. Skin: Skin warm and dry. Normal skin color. Normal skin turgor. No rashes. Extremities: No lower extremity edema. No joint swelling. Neuro/psych: Oriented X 3. Grossly normal, nonfocal. CN II-XII intact. Normal speech and cognition. Course Course Course Narrative: RME performed by Jeri Tee PA-C. Patient is a 42 year old assigned female at presenting to the emergency department with a fever and sinus congestion. Swabs ordered. Patient placed back in the waiting room pending room availability and results. Medical Decision Making Medical Decision Making MDM Narrative: 42-year-old female presents to the ER for evaluation of dry cough, fever, nasal congestion that started yesterday. She reports fever of 102 at home. She is afebrile here, hemodynamically stable and saturating well on room air. She is in no respiratory distress. Her physical exam is unremarkable, lungs are clear. Doubt any pneumonia given nonproductive cough and clear lungs. She was tested for COVID and influenza here which are negative. Her symptoms most likely due to another viral syndrome. we discussed the results, diagnosis, treatment and return precautions. She is stable for discharge home with supportive care. Differential Diagnosis Differential Diagnoses: The differential diagnosis associated with the presentation includes strep, covid, flu, rsv, other viral syndrome, bronchitis, pneumonia, no evidence of peritonsillar abcsess or retropharyngeal abscess Lab Data [facility] Lab Attestation statement: I reviewed the patient's lab results. Labs: Lab Results 08/29/22 08/29/22 Range/Units 12:23 12:23 COVID-19 (LUBNA) Negative (Negative) COVID-19 Clin Com See Note Influenza Type A (POLLO) Negative (Negative) Influenza Type B (POLLO) Negative (Negative) Influenza A & B Note See Note External Record Review External record reviewed: Outpatient record, Prior outpatient labs and Prior outpatient radiology Prescription Management I considered prescription management with: Antibiotic Critical Care Time Critical Care Time Critical Care Time: No Discharge Plan Discharge Clinical Impression: Viral URI with cough Patient Disposition: Home, Self-Care Instructions: Upper Respiratory Infection (DC) Additional Instructions: You tested negative for COVID and influenza today. Your symptoms are most likely due to another viral illness. Take [id number] cold and flu medications as needed for your symptoms. Rest and drink plenty of fluids. Take Motrin Tylenol as needed for fevers. Follow-up with your doctor as needed. If you develop new or worsening symptoms call 911 or come back to the ER for further evaluation. Prescriptions: New fluticasone propionate [Allergy Relief (fluticasone)] 50 mcg/actuation spray,suspension 2 spray intranasal DAILY Qty: 16 0RF Rx Instructions: administer into each nostril No Action cyclobenzaprine 10 mg tablet 10 mg PO TID PRN (Reason: muscle spasm) Qty: 14 0RF lidocaine [Lidoderm] 5 % adhesive patch,medicated 1 patch topical DAILY Qty: 15 0RF Rx Instructions: leave on most painful area for up to 12 hrs ibuprofen 600 mg tablet 600 mg PO Q8H PRN (Reason: pain) Qty: 20 0RF lidocaine [Lidoderm] 5 % adhesive patch,medicated 1 patch topical DAILY Qty: 15 0RF Rx Instructions: leave on most painful area for up to 12 hrs. May be substituted naproxen 500 mg tablet 500 mg PO BID PRN (Reason: pain) Qty: 10 0RF diazepam [Valium] 5 mg tablet 5 mg PO TID PRN (Reason: muscle spasm) Qty: 14 0RF oxycodone 5 mg tablet 5 mg PO Q6H PRN (Reason: pain) Qty: 14 0RF oxycodone 5 mg tablet 5 mg PO Q6H PRN (Reason: pain) Qty: 14 0RF nitrofurantoin monohyd/m-cryst [Macrobid] 100 mg capsule 100 mg PO Q12H 5 Days Qty: 10 0RF Rx Instructions: must administer with a meal/food metronidazole 500 mg tablet 500 mg PO BID 7 Days Qty: 14 0RF phenazopyridine [Pyridium] 200 mg tablet 200 mg PO TID PRN (Reason: pain) Qty: 10 0RF doxycycline monohydrate 100 mg capsule 100 mg PO BID Qty: 28 0RF cephalexin 500 mg capsule 500 mg PO Q6H 7 Days Qty: 28 0RF Referrals: Tiarra Farley MD [Primary Care Provider] - Stand Alone Forms: Work/School Release
[2022-08-29 12:13] VITALS: BP 147/92; PULSE 79; RESP 20; TEMP 36.8; O2SAT 99; BMI 31.2
[2022-08-29 12:55] LABS: COVID-19 Test Negative (Negative); IDNOW Serial# 08D9AD1C
[2022-08-29 13:05] LABS: IDNOW Serial# 55D5AD1C; Influenza A Negative (Negative); Influenza B2 Negative (Negative)
== END 2022-08-29 13:28 | disposition home or self-care (01) ==
PROVIDERS: Physician Assistant Medical; Emergency Provider Emergency Medicine; PCP Internal Medicine
DX: J06.9 Acute upper respiratory infection, unspecified (principal); R05.9 Cough, unspecified; Z20.822 Contact with and (suspected) exposure to COVID-19
CPT/HCPCS: 87502; 87635; 99282; 99283

== ENCOUNTER 2023-02-04 14:53 | Emergency (ER) | payer OTHER, SELFPAY ==
--- NOTE | ~2023-02-04 | XR_ITS ---
EXAMINATION: XR CHEST CLINICAL INFORMATION: Cough COMPARISON: TECHNIQUE: 2 views of the chest were obtained. FINDINGS: No significant abnormality is noted involving the heart, lungs, mediastinum, or soft tissues. Mild degenerative changes. XR/XR chest 2V IMPRESSION: Unremarkable examination.
[2023-02-04 15:06] VITALS: BP 186/111; PULSE 88; RESP 20; TEMP 36.2; O2SAT 99; BMI 40.5
--- NOTE | 2023-02-04 15:07 | ED.GENADULT ---
HPI - General Adult General Chief complaint: Upper Respiratory Symptoms Stated complaint: chest pain/ flu like symptoms Time Seen by Provider: 02/04/23 18:50 Source: patient Mode of arrival: ambulatory Limitations: no limitations History of Present Illness HPI narrative: [age] old female presents emergency department complaining of cough cold flu and pain in her chest when she coughs. She states all the symptoms started today she denies any falls or injuries she does have history of asthma denies any fevers or wheezing. Onset (ago): day(s) Related Data Previous Rx's Medication Instructions Recorded cyclobenzaprine 10 mg tablet 10 mg PO TID PRN muscle spasm #14 12/15/20 tabs ibuprofen 600 mg tablet 600 mg PO Q8H PRN pain #20 tabs 12/15/20 lidocaine 5 % topical patch 1 patch topical DAILY #15 ea 12/15/20 (Lidoderm) oxycodone 5 mg tablet 5 mg PO Q6H PRN pain #14 tabs 12/18/20 diazepam 5 mg tablet (Valium) 5 mg PO TID PRN muscle spasm #14 12/24/20 tabs lidocaine 5 % topical patch 1 patch topical DAILY pain #15 ea 12/24/20 (Lidoderm) naproxen 500 mg tablet 500 mg PO BID PRN pain #10 tabs 12/24/20 oxycodone 5 mg tablet 5 mg PO Q6H PRN pain #14 tabs 12/24/20 doxycycline monohydrate 100 mg 100 mg PO BID #28 caps 01/30/22 capsule metronidazole 500 mg tablet 500 mg PO BID 7 days #14 tabs 01/30/22 nitrofurantoin 100 mg PO Q12H 5 days #10 caps 01/30/22 monohydrate/macrocrystals 100 mg capsule (Macrobid) phenazopyridine 200 mg tablet 200 mg PO TID PRN pain 6 doses #10 01/30/22 (Pyridium) tabs cephalexin 500 mg capsule 500 mg PO Q6H 7 days #28 caps 07/19/22 fluticasone propionate 50 2 spray intranasal DAILY #16 grams 08/29/22 mcg/actuation nasal spray,suspension (Allergy Relief (fluticasone)) benzonatate 100 mg capsule 100 mg PO BID PRN cough #20 caps 02/04/23 Allergies Allergy/AdvReac Type Severity Reaction Status Date / Time aspirin [ASA] Allergy Hives Verified 08/29/22 12:16 Review of Systems Review of Systems: Review of systems: General: Patient denies any fever chills recent illness or falls Musculoskeletal: Denies back pain or body aches or other injuries HEENT: denies headache, runny nose, ear pain Respiratory: shortness of breath, cough Cardiovascular: Pleuritic chest pain or palpitations : denies dysuria, frequency Abdomen: no nausea vomiting denies abdominal pain Extremities: no swelling, no pain Skin: no diaphoresis Yes all other systems are reviewed and are negative PMFSH Past Medical History Medical History Asthma Surgical History H/O tubal ligation History of carpal tunnel surgery Social History Social History Patient Tobacco Use Status: Never used Tobacco Advance Directives: No Physical Exam ED Vital Signs: Vital Signs - 24 hr 02/04/23 15:06 Temperature 97.2 F Pulse Rate 88 Respiratory Rate 20 Blood Pressure 186/111 H Pulse Oximetry 99 Oxygen Delivery Method Room Air BMI result Body Mass Index 40.5 General: Well-appearing well-nourished in no signs of distress HEENT: Normocephalic atraumatic Neck: No signs of JVD, no masses no tenderness or lymphadenopathy Cardiovascular: Regular rate and rhythm Respiratory: Clear to auscultation bilaterally Abdomen: Soft nontender no masses Extremities: Normal pedal pulses no signs of edema Skin: Dry warm no rashes Back: No tenderness full ROM Course Course Course Narrative: RME - 42 yo female presents to the ER for evaluation of cough, runny nose that started yesterday and today progressed to N/V, palpitations, diffuse body aches BARNETT and chest pain. Reports mom was 39 and from heart attack. BP 186/111 in triage, not on BP meds at home. Plan: labs, EKG, CXR, viral swabs Medical Decision Making Medical Decision Making [facility] Narrative: Patient looks well she is not hypoxic or tachycardic the patient Ld Lucas she had an x-ray and labs show negative I do feel patient is safe to go home she is not wheezing and I think there is no benefit given her prednisone for few days. Differential Diagnosis Differential Diagnoses: The differential diagnosis associated with the presentation includes Cough pneumonia chest wall pain costochondritis upper respiratory infection COVID flu Admission/Observation Consideration of admission/observation: Escalation of care including admission/observation considered Lab Data [facility] Lab Attestation statement: I reviewed the patient's lab results. 02/04/23 15:29 02/04/23 15:29 Labs: Lab Results 02/04/23 Range/Units 15:29 WBC 6.3 (4.8-10.8) X10*3/uL RBC 4.67 (4.20-5.50) X10*6/uL Hgb 13.9 (12.0-16.0) g/dl Hct 41.4 (37.0-47.0) % MCV 88.7 (80.0-98.0) fL MCH 29.8 (27.0-33.0) pg MCHC 33.6 (31.0-35.0) g/dl RDW 13.2 (11.0-16.0) % Plt Count 257 (160-400) X10*3/uL MPV 11.5 (9.4-12.3) fL Immature Gran % (Auto) 0.2 (0.0-0.4) % Neut % (Auto) 66.5 (45-73) % Lymph % (Auto) 23.1 (20-40) % [place] % (Auto) 8.5 (2-11) % Eos % (Auto) 1.4 (0-4) % Baso % (Auto) 0.3 (0-2) % Lymph # (Auto) 1.5 (1.2-4.9) X10*3/uL [place] # (Auto) 0.5 (0.1-1.2) X10*3/uL Eos # (Auto) 0.1 (0.0-0.4) X10*3/uL Baso # (Auto) 0.0 (0.0-0.2) X10*3/uL Abs Immat Gran (auto) 0.01 (0.00-0.03) X10*3/uL Absolute Neuts (auto) 4.2 (2.0-8.3) x10*3/uL Absolute Nucleated RBC 0.000 (0.0-0.012) X10*3/uL Nucleated RBC % (auto) 0.0 (0.0-0.2) /100WBC Sodium 139 (135-145) mmol/L Potassium 3.8 (3.3-5.1) mmol/L Chloride 106 (96-108) mmol/L Carbon Dioxide 25 (22-29) mmol/L Anion Gap 12 (12-20) BUN 8 L (9-16) mg/dL Creatinine 0.78 (0.5-1.4) mg/dL Estim Creat Clear Calc 99.1 Estimated GFR > 60 Random Glucose 113 (60-115) mg/dL Calcium 9.3 (8.4-10.2) mg/dL Magnesium 2.1 (1.6-2.6) mg/dL Total Bilirubin 0.7 (0.0-1.0) mg/dL Direct Bilirubin 0.3 (0.0-0.5) mg/dL AST 23 (5-31) U/L ALT 27 (0-31) U/L Alkaline Phosphatase 65 (39-117) U/L Troponin I High Sens < 2.7 (<3.5-17.0) ng/L Total Protein 7.6 (6.5-8.0) g/dL Albumin 4.2 (3.5-5.0) g/dL Urine Color Yellow Urine Appearance Clear Urine pH 6.0 (5.0-9.0) Ur Specific [place] 1.025 (1.005-1.025) Urine Protein Trace (Neg-Trace) mg/dL Urine Glucose (UA) Negative (Negative) mg/dL Urine Ketones Trace (Negative) mg/dL Urine Blood Negative (Negative) Urine Nitrite Negative (Negative) Ur Leukocyte Esterase Negative (Negative) Influenza Type A (PCR) NEGATIVE (Negative) Influenza Type B (PCR) NEGATIVE (Negative) RSV RNA Qual (PCR) NEGATIVE (Negative) SARS-CoV-2 RNA (RT-PCR) NEGATIVE (Negative) Independent Interpretation I performed an independent interpretation of an: Plain X-Ray Independent Historian Clinical information obtained from an independent historian. History obtained from or confirmed by: Friend External Record Review External record reviewed: Inpatient record Discharge Plan Discharge Clinical Impression: Upper respiratory infection, Bronchitis Patient Disposition: Home, Self-Care Instructions: Upper Respiratory Infection (DC), Acute Bronchitis (ED) Additional Instructions: You seem to emergency room for 1 day of cough and cold symptoms. Urine x-ray and swabs which were negative for COVID flu and RSV. Please call follow up with her doctor give any other concerns please do not hesitate to come back to emergency department. Prescriptions: New benzonatate 100 mg capsule 100 mg PO BID PRN (Reason: cough) Qty: 20 0RF No Action cyclobenzaprine 10 mg tablet 10 mg PO TID PRN (Reason: muscle spasm) Qty: 14 0RF lidocaine [Lidoderm] 5 % adhesive patch,medicated 1 patch topical DAILY Qty: 15 0RF Rx Instructions: leave on most painful area for up to 12 hrs ibuprofen 600 mg tablet 600 mg PO Q8H PRN (Reason: pain) Qty: 20 0RF lidocaine [Lidoderm] 5 % adhesive patch,medicated 1 patch topical DAILY Qty: 15 0RF Rx Instructions: leave on most painful area for up to 12 hrs. May be substituted naproxen 500 mg tablet 500 mg PO BID PRN (Reason: pain) Qty: 10 0RF diazepam [Valium] 5 mg tablet 5 mg PO TID PRN (Reason: muscle spasm) Qty: 14 0RF oxycodone 5 mg tablet 5 mg PO Q6H PRN (Reason: pain) Qty: 14 0RF oxycodone 5 mg tablet 5 mg PO Q6H PRN (Reason: pain) Qty: 14 0RF nitrofurantoin monohyd/m-cryst [Macrobid] 100 mg capsule 100 mg PO Q12H 5 Days Qty: 10 0RF Rx Instructions: must administer with a meal/food metronidazole 500 mg tablet 500 mg PO BID 7 Days Qty: 14 0RF phenazopyridine [Pyridium] 200 mg tablet 200 mg PO TID PRN (Reason: pain) Qty: 10 0RF doxycycline monohydrate 100 mg capsule 100 mg PO BID Qty: 28 0RF cephalexin 500 mg capsule 500 mg PO Q6H 7 Days Qty: 28 0RF fluticasone propionate [Allergy Relief (fluticasone)] 50 mcg/actuation spray,suspension 2 spray intranasal DAILY Qty: 16 0RF Rx Instructions: administer into each nostril
--- NOTE | 2023-02-04 15:08 | ECG_ITS ---
Test Reason : CHEST PAIN Blood Pressure : / mmHG Vent. Rate : 079 BPM Atrial Rate : 079 BPM P-R Int : 150 ms QRS Dur : 086 ms QT Int : 398 ms P-R-T Axes : 058 012 031 degrees QTc Int : 456 ms Normal sinus rhythm Normal ECG When compared with ECG of 18-DEC-2020 17:06, No significant change was found Referred By: Mabel Kirkland Electronically Signed By:KATHY RAMIREZ MD
--- NOTE | 2023-02-04 15:32 | MHC.EDTECH ---
Patient ekg taken in triage and was read by Provider ,blood drawn and urine sample collected ,also rsv/covid swab all sent to lab .
[2023-02-04 15:33] LABS: MANUAL DIFF FLAG NO
[2023-02-04 15:36] LABS: Appearance Urine Clear; Basophils Percent Auto 0.3 % (0-2); Color Urine Yellow; Eosinophils Absolute Auto 0.1 X10*3/uL (0.0-0.4); Eosinophils Percent Auto 1.4 % (0-4); Glucose Urine UA Negative (Negative); Hematocrit 41.4 % (37.0-47.0); Hemoglobin 13.9 g/dl (12.0-16.0); Imm Gran Abs Auto 0.01 X10*3/uL (0.00-0.03); Imm Gran Pct Auto 0.2 % (0.0-0.4); Leukocyte Esterase Urine Negative (Negative); Lymphocytes Absolute Auto 1.5 X10*3/uL (1.2-4.9); Lymphocytes Percent Auto 23.1 % (20-40); Mean Corpuscular HGB Conc 33.6 g/dl (31.0-35.0); Mean Corpuscular Hemoglobin 29.8 pg (27.0-33.0); Mean Corpuscular Volume 88.7 fL (80.0-98.0); Mean Platelet Volume 11.5 fL (9.4-12.3); Monocytes Absolute Auto 0.5 X10*3/uL (0.1-1.2); Monocytes Percent Auto 8.5 % (2-11); Neutrophils Absolute Auto 4.2 x10*3/uL (2.0-8.3); Neutrophils Percent Auto 66.5 % (45-73); Nitrite Urine Negative (Negative); Platelet Count 257 X10*3/uL (160-400); Red Blood Count 4.67 X10*6/uL (4.20-5.50); Red Cell Distribution Width 13.2 % (11.0-16.0); Specific Gravity - Urine 1.025 (1.005-1.025); Urine Blood Negative (Negative); Urine Ketones Trace mg/dL (Negative); Urine Protein Trace mg/dL (Neg-Trace); White Blood Count 6.3 X10*3/uL (4.8-10.8)
[2023-02-04 15:49] LABS: Alanine Aminotransferase 27 U/L (0-31); Albumin Level 4.2 g/dL (3.5-5.0); Alkaline Phosphatase 65 U/L (39-117); Anion Gap 12 (12-20); Aspartate Amino Transferase 23 U/L (5-31); Bilirubin Direct 0.3 mg/dL (0.0-0.5); Bilirubin Total 0.7 mg/dL (0.0-1.0); Blood Urea Nitrogen 8 mg/dL (9-16); Calcium 9.3 mg/dL (8.4-10.2); Carbon Dioxide 25 mmol/L (22-29); Chloride 106 mmol/L (96-108); Creatinine Clr Calc Pharmacy 99.1; Estimated Glomerular Filt Rate > 60; Glucose Random 113 mg/dL (60-115); Magnesium 2.1 mg/dL (1.6-2.6); Potassium 3.8 mmol/L (3.3-5.1); Sodium 139 mmol/L (135-145); Total Protein 7.6 g/dL (6.5-8.0)
[2023-02-04 15:56] LABS: Troponin-I High Sensitivity < 2.7 ng/L (<3.5-17.0)
[2023-02-04 16:43] LABS: Influenza A PCR NEGATIVE (Negative); Influenza B PCR NEGATIVE (Negative); Resp Syncy Virus RNA Qual PCR NEGATIVE (Negative); SARS COV2 PCR INHOUSE NEGATIVE (Negative)
[2023-02-04] MEDS: Benzonatate 100 MG CAPSULE PO (19:52)
[2023-02-04 19:53] VITALS: BP 138/81; PULSE 69; RESP 20; O2SAT 98
== END 2023-02-04 20:10 | disposition home or self-care (01) ==
PROVIDERS: Physician Assistant; Emergency Provider Student in an Organized Health Care Education/Training Program; PCP Internal Medicine
DX: J06.9 Acute upper respiratory infection, unspecified (principal); J40 Bronchitis, not specified as acute or chronic; Z20.822 Contact with and (suspected) exposure to COVID-19; Z20.828 Contact with and (suspected) exposure to other viral communicable diseases; Z79.899 Other long term (current) drug therapy
CPT/HCPCS: 0241U; 71046; 80048; 80076; 81003; 83735; 84484; 85025; 93005; 99283; 99284

== ENCOUNTER 2023-06-14 11:32 | Emergency (ER) | payer OTHER, SELFPAY ==
[2023-06-14 12:06] VITALS: BP 135/70; PULSE 77; RESP 19; TEMP 36.6; O2SAT 99; BMI 30.2
--- NOTE | 2023-06-14 12:09 | ED_ITS ---
HPI - URI/Sore Throat General Chief Complaint: General Medical Stated Complaint: confidential Related Data Previous Rx's Medication Instructions Recorded cyclobenzaprine 10 mg tablet 10 mg PO TID PRN muscle spasm #14 12/15/20 tabs ibuprofen 600 mg tablet 600 mg PO Q8H PRN pain #20 tabs 12/15/20 lidocaine 5 % topical patch 1 patch topical DAILY #15 ea 12/15/20 (Lidoderm) oxycodone 5 mg tablet 5 mg PO Q6H PRN pain #14 tabs 12/18/20 diazepam 5 mg tablet (Valium) 5 mg PO TID PRN muscle spasm #14 12/24/20 tabs lidocaine 5 % topical patch 1 patch topical DAILY pain #15 ea 12/24/20 (Lidoderm) naproxen 500 mg tablet 500 mg PO BID PRN pain #10 tabs 12/24/20 oxycodone 5 mg tablet 5 mg PO Q6H PRN pain #14 tabs 12/24/20 doxycycline monohydrate 100 mg 100 mg PO BID #28 caps 01/30/22 capsule metronidazole 500 mg tablet 500 mg PO BID 7 days #14 tabs 01/30/22 nitrofurantoin 100 mg PO Q12H 5 days #10 caps 01/30/22 monohydrate/macrocrystals 100 mg capsule (Macrobid) phenazopyridine 200 mg tablet 200 mg PO TID PRN pain 6 doses #10 01/30/22 (Pyridium) tabs cephalexin 500 mg capsule 500 mg PO Q6H 7 days #28 caps 07/19/22 fluticasone propionate 50 2 spray intranasal DAILY #16 grams 08/29/22 mcg/actuation nasal spray,suspension (Allergy Relief (fluticasone)) benzonatate 100 mg capsule 100 mg PO BID PRN cough #20 caps 02/04/23 Allergies Allergy/AdvReac Type Severity Reaction Status Date / Time aspirin [ASA] Allergy Hives Verified 06/14/23 12:06 [facility] Past Medical History Medical History Asthma Surgical History H/O tubal ligation History of carpal tunnel surgery Social History Social History Patient Tobacco Use Status: Never used Tobacco Advance Directives: No Advance Directives Information Provided: No Physical Exam Vital Signs: Vital Signs: Last Vital Signs Temp 98 F 06/14/23 12:06 Pulse 77 06/14/23 12:06 Resp 19 06/14/23 12:06 BP 135/70 06/14/23 12:06 Pulse Ox 99 06/14/23 12:06 O2 Del Method Room Air 06/14/23 12:06 BMI result Body Mass Index 30.2 Course Course Course Narrative: This is a rapid medical exam. Defer additional HPI, ROS, PE to primary provider. 42-year-old female who is healthy presents to the ER with complaints of sore throat and generalized malaise. Patient recently had unprotected sex would also like STI testing. Will send testing for flu, COVID, RSV and strep, obtain UA, CTNG, ur preg VSS Medical Decision Making Lab Data Labs: Lab Results 06/14/23 06/14/23 Range/Units 12:41 12:42 Urine Color Yellow Urine Appearance Cloudy Urine pH 6.0 (5.0-9.0) Ur Specific [place] 1.025 (1.005-1.025) Urine Protein Trace (Neg-Trace) mg/dL Urine Glucose (UA) Negative (Negative) mg/dL Urine Ketones Trace (Negative) mg/dL Urine Blood Negative (Negative) Urine Nitrite Negative (Negative) Ur Leukocyte Esterase Negative (Negative) Urine Test NEGATIVE (NEGATIVE) Chlam trachomat DNA PCR DETECTED A (Not Detect.) Influenza Type A (PCR) NEGATIVE (Negative) Influenza Type B (PCR) NEGATIVE (Negative) N.gonorrhoeae DNA (PCR) DETECTED A (Not Detect.) RSV RNA Qual (PCR) NEGATIVE (Negative) SARS-CoV-2 RNA (RT-PCR) NEGATIVE (Negative) S. pyogenes GrpA POLLO Negative (Negative) Discharge Plan Discharge Clinical Impression: Acute sore throat Patient Disposition: Left W/O Completing Treatment Prescriptions: No Action cyclobenzaprine 10 mg tablet 10 mg PO TID PRN (Reason: muscle spasm) Qty: 14 0RF lidocaine [Lidoderm] 5 % adhesive patch,medicated 1 patch topical DAILY Qty: 15 0RF Rx Instructions: leave on most painful area for up to 12 hrs ibuprofen 600 mg tablet 600 mg PO Q8H PRN (Reason: pain) Qty: 20 0RF lidocaine [Lidoderm] 5 % adhesive patch,medicated 1 patch topical DAILY Qty: 15 0RF Rx Instructions: leave on most painful area for up to 12 hrs. May be substituted naproxen 500 mg tablet 500 mg PO BID PRN (Reason: pain) Qty: 10 0RF diazepam [Valium] 5 mg tablet 5 mg PO TID PRN (Reason: muscle spasm) Qty: 14 0RF oxycodone 5 mg tablet 5 mg PO Q6H PRN (Reason: pain) Qty: 14 0RF oxycodone 5 mg tablet 5 mg PO Q6H PRN (Reason: pain) Qty: 14 0RF nitrofurantoin monohyd/m-cryst [Macrobid] 100 mg capsule 100 mg PO Q12H 5 Days Qty: 10 0RF Rx Instructions: must administer with a meal/food metronidazole 500 mg tablet 500 mg PO BID 7 Days Qty: 14 0RF phenazopyridine [Pyridium] 200 mg tablet 200 mg PO TID PRN (Reason: pain) Qty: 10 0RF doxycycline monohydrate 100 mg capsule 100 mg PO BID Qty: 28 0RF cephalexin 500 mg capsule 500 mg PO Q6H 7 Days Qty: 28 0RF fluticasone propionate [Allergy Relief (fluticasone)] 50 mcg/actuation spray,suspension 2 spray intranasal DAILY Qty: 16 0RF Rx Instructions: administer into each nostril benzonatate 100 mg capsule 100 mg PO BID PRN (Reason: cough) Qty: 20 0RF Discharge Date/Time: 06/14/23 15:03
[2023-06-14 12:55] LABS: Appearance Urine Cloudy; Color Urine Yellow; Glucose Urine UA Negative (Negative); Leukocyte Esterase Urine Negative (Negative); Nitrite Urine Negative (Negative); Specific Gravity - Urine 1.025 (1.005-1.025); Urine Blood Negative (Negative); Urine Ketones Trace mg/dL (Negative); Urine Protein Trace mg/dL (Neg-Trace)
[2023-06-14 12:56] LABS: UPreg QC Valid YES; Urine Pregnancy NEGATIVE (NEGATIVE)
[2023-06-14 13:07] LABS: IDNOW Serial# 6674DD1D; Strep A Nucleic Acid Negative (Negative)
[2023-06-14 13:36] LABS: Influenza A PCR NEGATIVE (Negative); Influenza B PCR NEGATIVE (Negative); Resp Syncy Virus RNA Qual PCR NEGATIVE (Negative); SARS COV2 PCR INHOUSE NEGATIVE (Negative)
[2023-06-14 16:04] LABS: CT PCR DETECTED (Not Detect.); NG PCR DETECTED (Not Detect.)
== END 2023-06-14 15:03 | disposition left against medical advice (07) ==
PROVIDERS: Nurse Practitioner Family; Emergency Provider Emergency Medicine
DX: J06.9 Acute upper respiratory infection, unspecified (principal); Z20.822 Contact with and (suspected) exposure to COVID-19; Z11.52 Encounter for screening for COVID-19; Z79.899 Other long term (current) drug therapy
CPT/HCPCS: 0241U; 0353U; 81003; 81025; 87651; 99282; 99283

== ENCOUNTER 2023-06-15 12:26 | Emergency (ER) | payer OTHER, SELFPAY ==
--- NOTE | 2023-06-15 13:06 | ED.GENADULT ---
HPI - General Adult General Chief complaint: Urogenital-Female Stated complaint: personal Time Seen by Provider: 06/15/23 13:04 Source: patient Mode of arrival: ambulatory Limitations: no limitations History of Present Illness HPI narrative: Patient is a 42 year old assigned female at with no reported medical history presenting to the emergency department today requesting STI testing. Patient states that her and her partner broke up, both had sex with others, and now wants to be tested and treated for possible STD. Patient denies any dizziness, lightheadedness, abdominal pain, nausea, vomiting, fever, chills, blurry vision, double vision, loss of vision, chest pain, difficulty breathing, shortness of breath, back pain, night sweats, pain with urination, increased urinary frequency, increased urinary urgency, blood in her urine or stool, syncope or a near syncopal episode, recent trauma or falls, bowel incontinence, bladder incontinence, bowel retention, bladder retention, or any other complaints at this time. Relieving factors: none Exacerbating factors: none Associated symptoms: denies other symptoms Treatments prior to arrival: none Related Data Previous Rx's Medication Instructions Recorded cyclobenzaprine 10 mg tablet 10 mg PO TID PRN muscle spasm #14 12/15/20 tabs ibuprofen 600 mg tablet 600 mg PO Q8H PRN pain #20 tabs 12/15/20 lidocaine 5 % topical patch 1 patch topical DAILY #15 ea 12/15/20 (Lidoderm) oxycodone 5 mg tablet 5 mg PO Q6H PRN pain #14 tabs 12/18/20 diazepam 5 mg tablet (Valium) 5 mg PO TID PRN muscle spasm #14 12/24/20 tabs lidocaine 5 % topical patch 1 patch topical DAILY pain #15 ea 12/24/20 (Lidoderm) naproxen 500 mg tablet 500 mg PO BID PRN pain #10 tabs 12/24/20 oxycodone 5 mg tablet 5 mg PO Q6H PRN pain #14 tabs 12/24/20 doxycycline monohydrate 100 mg 100 mg PO BID #28 caps 01/30/22 capsule metronidazole 500 mg tablet 500 mg PO BID 7 days #14 tabs 01/30/22 nitrofurantoin 100 mg PO Q12H 5 days #10 caps 01/30/22 monohydrate/macrocrystals 100 mg capsule (Macrobid) phenazopyridine 200 mg tablet 200 mg PO TID PRN pain 6 doses #10 01/30/22 (Pyridium) tabs cephalexin 500 mg capsule 500 mg PO Q6H 7 days #28 caps 07/19/22 fluticasone propionate 50 2 spray intranasal DAILY #16 grams 08/29/22 mcg/actuation nasal spray,suspension (Allergy Relief (fluticasone)) benzonatate 100 mg capsule 100 mg PO BID PRN cough #20 caps 02/04/23 doxycycline hyclate 100 mg tablet 100 mg PO BID 7 days #14 tabs 06/15/23 Allergies Allergy/AdvReac Type Severity Reaction Status Date / Time aspirin [ASA] Allergy Hives Verified 06/14/23 12:06 Review of Systems Constitutional: Constitutional: Reports no additional constitutional complaints, Denies chills, Denies fever(s) and Denies night sweats Eyes: Eyes: Reports no additional eye complaints, Denies blurry vision, Denies change in vision, Denies diplopia, Denies eye discharge, Denies loss of vision and Denies eye pain ENT: Denies dizziness Cardiovascular: Cardiovascular: Reports no additional cardiovascular complaints, Denies chest pain, Denies lightheadedness, Denies Loss of Consciousness and Denies dyspnea Respiratory: Respiratory: Reports no additional respiratory complaints and Denies dyspnea Gastrointestinal: Gastrointestinal: Reports no additional gastrointestinal complaints, Denies abdominal pain, Denies melena, Denies hematochezia, Denies change in bowel habits and Denies change in stool character Genitourinary: Genitourinary: Denies hematuria, Denies urinary frequency, Denies dysuria, Denies urinary incontinence, Denies urinary hesitancy and Denies urinary urgency Musculoskeletal: Musculoskeletal: Reports no additional musculoskeletal complaints, Denies numbness and Denies tingling Neurologic: Denies dizziness, Denies loss of vision, Denies numbness and Denies tingling Psychiatric: Psychiatric: Reports no additional psychiatric complaints Endocrine: Endocrine: Reports no additional endocrine complaints Hematologic/Lymphatic: Hematologic/Lymphatic: Reports no additional hematologic/lymphatic complaints Allergic/Immunologic: Allergic/Immunologic: Reports no additional allergic/immunologic complaints PMFSH Past Medical History Attestation statement: The following information was validated with the patient. Source: old records reviewed and nursing notes reviewed Medical History Asthma Surgical History H/O tubal ligation History of carpal tunnel surgery Social History Social History Patient Tobacco Use Status: Never used Tobacco Smoked in Last 30 Days: Yes Use of substances other than those prescribed or required for medical reasons: No Advance Directives: No Advance Directives Information Provided: No Patient : No Physical Exam ED Vital Signs: Vital Signs - 24 hr 06/15/23 13:18 Temperature 97.4 F Pulse Rate 79 Respiratory Rate 16 Blood Pressure 137/89 Pulse Oximetry 100 Oxygen Delivery Method Room Air BMI result Body Mass Index 0.3 Const General: cooperative, no acute distress, alert and awake Nutritional Appearance: well nourished Orientation/consciousness: patient oriented x3 Limitations: no limitations HENMT Head: Yes normal to inspection and Yes atraumatic Ears: hearing grossly normal bilaterally and external ears normal General nose exam: Normal external nose present, no nasal discharge noted and no epistaxis Face and sinus: Yes normal facial exam, No abrasion and No laceration Mouth: Normal oral and palatal mucosa present, no drooling and no muffled voice Eyes General: appearance normal, both eyes and all related structures Periorbital: periorbital findings normal Eyelids: Yes eyelids normal Conjunctivae: conjunctivae normal Pupils: Equal, round and reactive pupils present EOM: EOMs intact bilaterally Neck Neck: Yes normal visual inspection, Yes full ROM and Yes no lymphadenopathy Chest Chest palpation & inspection: normal inspection of the chest Resp Effort & Inspection: normal respiratory effort and able to speak in complete sentences GI Inspection: Yes normal to inspection Neuro General: patient oriented x3 and moves all extremities Cranial nerves: Yes Equal, round and reactive pupils present Cognition (Neuro): normal cognition Motor exam (neuro): 5/5 motor strength present throughout Sensory Exam: Normal double simultaneous stimulation for sensation Coordination: [id number] test normal Extrem General: Yes normal to inspection, Yes full ROM and Yes capillary refill normal Psych Appearance: grossly normal Mental Status: mental status grossly normal Affect: normal affect Attitude: cooperative Thought process: Normal thought process present Thought content: Normal thought content present Insight: Good insight present (Psych) Medications Administered Discontinued Medications Generic Name Dose Route Start Last Admin Trade Name Freq PRN Reason Stop Dose Admin Ceftriaxone Sodium 500 mg/ 0 mg 06/15/23 13:15 06/15/23 14:01 Lidocaine HCl 1 ml IM 06/15/23 13:16 1 kit ONCE ONE Administration Medical Decision Making Medical Decision Making [facility] Narrative: Patient is a 42 year old assigned female at with no reported medical history presenting to the emergency department today requesting treatment and testing for STI/STD. Patient's physical exam was unremarkable. Patient's urine CTNG is currently pending. I explained my physical exam findings to the patient. I answered all questions asked by the patient. I stressed the importance of the patient taking her medication as prescribed. I stressed the importance of the patient following up with her primary care provider. I stressed the importance of the patient returning to the emergency department immediately if she were to develop any dizziness, shortness of breath, difficulty breathing, chest pain, blurry vision, loss of vision, nausea, vomiting, abdominal pain, fever, chills, back pain, or any other complaints. Patient verbalized agreement and understanding with this treatment plan and discharge. Differential Diagnosis Differential Diagnoses: The differential diagnosis associated with the presentation includes STD testing STI testing Gonorrhea Chlamydia Admission/Observation Consideration of admission/observation: Escalation of care including admission/observation considered Patient would have been admitted to the hospital had her clinical presentation warranted hospital admission. Prescription Management I considered prescription management with: Antibiotic (patient prescribed prophylactic antibiotic for STI treatment) Discharge Plan Discharge Clinical Impression: Exposure to STD Patient Disposition: Home, Self-Care Instructions: Sexually Transmitted Diseases (ED), Safe Sex Practices (ED) Additional Instructions: We will call you if your results are positive. Follow up with your primary care provider. Return to the emergency department immediately if your symptoms worsen or if you develop any dizziness, shortness of breath, difficulty breathing, chest pain, blurry vision, loss of vision, nausea, vomiting, abdominal pain, fever, chills, back pain, or any other complaints. Prescriptions: New doxycycline hyclate 100 mg tablet 100 mg PO BID 7 Days Qty: 14 0RF No Action cyclobenzaprine 10 mg tablet 10 mg PO TID PRN (Reason: muscle spasm) Qty: 14 0RF lidocaine [Lidoderm] 5 % adhesive patch,medicated 1 patch topical DAILY Qty: 15 0RF Rx Instructions: leave on most painful area for up to 12 hrs ibuprofen 600 mg tablet 600 mg PO Q8H PRN (Reason: pain) Qty: 20 0RF lidocaine [Lidoderm] 5 % adhesive patch,medicated 1 patch topical DAILY Qty: 15 0RF Rx Instructions: leave on most painful area for up to 12 hrs. May be substituted naproxen 500 mg tablet 500 mg PO BID PRN (Reason: pain) Qty: 10 0RF diazepam [Valium] 5 mg tablet 5 mg PO TID PRN (Reason: muscle spasm) Qty: 14 0RF oxycodone 5 mg tablet 5 mg PO Q6H PRN (Reason: pain) Qty: 14 0RF oxycodone 5 mg tablet 5 mg PO Q6H PRN (Reason: pain) Qty: 14 0RF nitrofurantoin monohyd/m-cryst [Macrobid] 100 mg capsule 100 mg PO Q12H 5 Days Qty: 10 0RF Rx Instructions: must administer with a meal/food metronidazole 500 mg tablet 500 mg PO BID 7 Days Qty: 14 0RF phenazopyridine [Pyridium] 200 mg tablet 200 mg PO TID PRN (Reason: pain) Qty: 10 0RF doxycycline monohydrate 100 mg capsule 100 mg PO BID Qty: 28 0RF cephalexin 500 mg capsule 500 mg PO Q6H 7 Days Qty: 28 0RF fluticasone propionate [Allergy Relief (fluticasone)] 50 mcg/actuation spray,suspension 2 spray intranasal DAILY Qty: 16 0RF Rx Instructions: administer into each nostril benzonatate 100 mg capsule 100 mg PO BID PRN (Reason: cough) Qty: 20 0RF Referrals: [facility] [place] Family [place] [Provider Group] (Call to establish and follow up with a primary care provider. If you already have a primary care provider, please follow up with them.) [facility] [place] [facility] [Provider Group] (Call to establish and follow up with a primary care provider. If you already have a primary care provider, please follow up with them.) [facility] [place] [facility] [Provider Group] (Call to establish and follow up with a primary care provider. If you already have a primary care provider, please follow up with them.) [facility] [Provider Group] (This is an excellent resource for STI/STD testing in the community. ) Stand Alone Forms: Work/School Release Interventions: ED Discharge Assessment Last Done: 06/15/23 14:07 Discharge Date/Time: 06/15/23 14:07 Print Language: Latvian
[2023-06-15 13:18] VITALS: BP 137/89; PULSE 79; RESP 16; TEMP 36.3; O2SAT 100
[2023-06-15] MEDS: cefTRIAXone sodium 500 MG, Lidocaine HCl 1 % MPF 1 ML IM (14:01)
[2023-06-15 16:33] LABS: CT PCR DETECTED (Not Detect.); NG PCR DETECTED (Not Detect.)
== END 2023-06-15 14:07 | disposition home or self-care (01) ==
PROVIDERS: Physician Assistant Medical; Emergency Provider Emergency Medicine
DX: A54.9 Gonococcal infection, unspecified (principal); A74.9 Chlamydial infection, unspecified
CPT/HCPCS: 0353U; 99284; J0696